=== PATIENT | female | born 2000 | race Two or more races ===

== ENCOUNTER 2019-08-30 22:49 | Emergency (ER) | payer SELFPAY ==
[2019-08-30] MEDS ORDERED: Bicillin LA 2.4 MILL.UNITS/4 ML SYRINGE ONE (23:17)
[2019-08-30] MEDS ORDERED: Ondansetron ODT 4 MG TAB ONE (23:17)
[2019-08-30] MEDS ORDERED: diphenhydrAMINE 25 MG CAP ONE (23:17)
== END 2019-08-30 23:30 | disposition home or self-care (01) ==
LOC: ERS 22:49
DX: O99.711 Diseases of the skin and subcutaneous tissue complicating pregnancy, first trimester (principal); L50.0 Allergic urticaria; O16.1 Unspecified maternal hypertension, first trimester; Z3A.01 Less than 8 weeks gestation of pregnancy
CPT/HCPCS: 99283; J0561; Q0162; Q0163